=== PATIENT | male | born 1935 | race Caucasian/White ===

== ENCOUNTER 2019-10-17 14:58 | Inpatient (IN) | payer MEDICARE ==
[~2019-10-17] VITALS: Ht 188 cm; Wt 65.5 kg
--- NOTE | ~2019-10-17 | DS ---
PATIENT:MILAGRO STRONG :39 MEDICAL RECORD: [id number] DISCHARGE SUMMARY ADMISSION DATE: 10/17/19 DISCHARGE DATE: 10/23/19 DATE OF DISCHARGE: 10/23/2019 IDENTIFYING DATA: Mr. Strong is an 84-year-old male that was admitted to the hospital on a voluntary basis. CHIEF COMPLAINT: Altered mental status with behavioral disturbance. HISTORY OF PRESENT ILLNESS: The patient was transferred from inpatient. The patient was residing with spouse. He had been increasingly aggressive with his spouse. He had had a CVA. HOSPITAL COURSE: The patient was admitted to the hospital and evaluated from both a medical, psychological, and social standpoint. He was found to have advanced dementia, was treated with both mood stabilizing and memory enhancing medications. He did not show any improvement and was with a poor prognosis. Spouse was communicated with and it was decided that he would go to [facility] with hospice care. AXIS I: Vascular dementia with behavioral disturbances: AXIS II: None. AXIS III: Parkinson disease, anxiety, cerebrovascular accident, osteoarthritis. AXIS IV: Moderate stressors. AXIS V: Global assessment of function is 35. PLAN: At the time of discharge, the patient was in good behavioral control, was not eating nor sleeping well, however. He was placed in an environment where he could have 24-hour a day supervision and comfort care provided. Followup will be with his primary care physician. TRANSINT:[id number] Voice Confirmation ID: [id number] DOCUMENT ID: [id number] Dictated By: GAURAV CADENA I have interviewed/examined the above patient and agree with these documented findings. SENTHIL FARAH MD CC: [id number] DICTATION DATE: 10/25/19 1004 SUPERVISOR SCRAP PREPARATION: 10/26/19 0100 DIS IN 10/23/19 [facility] [address] [place] [address]
[2019-10-17] MEDS ORDERED: GLYCOPYRROLATE1 MG PO (16:29)
[2019-10-17] MEDS ORDERED: BAYER CHEWABLE81 MG PO (16:29)
[2019-10-17] MEDS ORDERED: CARBIDOPA LE S PO (16:31)
[2019-10-17] MEDS ORDERED: MUCINEX600 MG PO (16:33)
[2019-10-17] MEDS ORDERED: TYLENOL PM1 TAB PO (16:34)
[2019-10-17] MEDS ORDERED: AZILECT1 MG PO (16:34)
[2019-10-17] MEDS ORDERED: MOBIC7.5 MG PO (16:35)
[2019-10-17] MEDS ORDERED: XANAX0.5 MG PO (16:36)
[2019-10-17] MEDS ORDERED: VIAGRA50 MG PO (16:37)
[2019-10-17] MEDS ORDERED: EFUDEX 5 % CREA40 GM TOPICAL (16:40)
[2019-10-17] MEDS ORDERED: LIPITOR10 MG PO (16:40)
[2019-10-17] MEDS ORDERED: MULTI-DAY VITAM1 TAB PO (16:41)
[2019-10-17] MEDS ORDERED: OMEGA-3100 MG PO (16:42)
[2019-10-17] MEDS ORDERED: GLUCOSAMINE CHONDROI PO (16:45)
[2019-10-17] MEDS ORDERED: MIRALAX17 GM PO (16:46)
--- NOTE | 2019-10-17 17:15 | NUR ---
The patient is admitted to senior living from [facility], apparently he has had a stroke in the last month and he now has left sided weakness, he has a hx of Parkinson's, but he and his reside in their home until the stroke. The patient is unable to speak well. He is able to stand, but he is unsteady and has difficulty following simple commands. He is restless and he is trying to stand and walk and he does not understand why he is not able. 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 He has his teeth, no dentures, no heart or lung issues. 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 He is a DNR per his TANGELA Ramos. She has provided copies of his POA papers. He is currently in a lucia chair with a chair alarm on and he is a high falls risk.
[2019-10-17 17:24] VITALS: BP 138/75; BMI 17.2
--- NOTE | 2019-10-17 19:37 | NUR ---
PT IS RESTLESS AND AGGITATED WITH REDIRECTION. ADMINISTERED PRN HALDOL 2 MG IM AND ATIVAN 0.5 MG IM. WILL CONTINUE TO MONITOR.
[2019-10-17 20:00] VITALS: BP 128/61
--- NOTE | 2019-10-17 21:00 | NUR ---
B.) PT IS ALERT AND ORIENTED TO SELF ONLY. HE HAS POOR INSIGHT INTO HIS SITUATION. HE RECEIVED A PRN OF HALDOL AND ATIVAN AND IS RESTING CALMLY IN A GERICHAIR. NO SIGNS OF DISTRESS NOTED. I.) REDIRECT OFTEN. R.) EASIER TO REDIRECT. P.) WILL CONTINUE TO MONITOR.
[2019-10-17 23:53] LABS: BILIRUBIN NEGATIVE (NEGATIVE); GLUCOSE NEGATIVE (NEGATIVE); KETONE SMALL mg/dL (NEGATIVE); NITRITE NEGATIVE (NEGATIVE); RED CELLS - URINE 25-50 /hpf (0-5); UROBILINOGEN NORMAL (NORMAL)
[2019-10-18 06:34] LABS: CHOL - HDL RATIO 3.4 ratio (2.3-4.9); THYROID STIMULATING HORMONE 1.01 uIU/mL (0.36-3.74)
--- NOTE | 2019-10-18 07:53 | NUR ---
The patient is restless, he wants to stand up, he is used to be very independent. He is unable to comprehend that he has left sided weakness. Staff are trying to explian to him that he is not able to walk alone at this time, but he is getting anxious and he has tried to hit at the staff with his right arm. Ativan 0.5 mg IM provided, see MAR. When staff try to talk to him he has a difficult time looking at the person speaking. He has poor insight into his situation and he is not able to speak clearly at this time which adds to his frustration. Provide prescribed meds. Redirect as needed, approach in a calm manner. Continue POC.
--- NOTE | 2019-10-18 07:55 | NUR ---
RESTLESS,HITTING AT STAFF.WILL NOT REDIRECT.ATIVAN 0.5MG IM TO RT UPPER ARM GIVEN PER ORDERS.
--- NOTE | 2019-10-18 08:30 | NUR ---
The patient is sleeping and he was too sleepy for am meds at this time, will try again in a little while.
[2019-10-18 10:50] VITALS: BP 137/80
--- NOTE | 2019-10-18 18:10 | NUR ---
RESTLESS,NONCOMPLIANT WITH STAFF.WILL NOT REDIRECT,HITS AT STAFF.HAS REFUSED MEDS ALL DAY.ATIVAN 0.5MG IM TO RT DELTOID GIVEN.
--- NOTE | 2019-10-18 19:42 | PSY ---
PATIENT NAME:MILAGRO STRONG MEDICAL RECORD: [id number] : 39 LOCATION:[facility] Castaneda ADMISSION DATE: 10/17/19 ACCOUNT: [id number] PSYCHIATRIC EVALUATION DATE OF EVALUATION: 10/18/19 IDENTIFYING DATA: The patient is 84 years old and he is admitted to the hospital on a voluntary basis because of confusion and agitation. CHIEF COMPLAINT: None. HISTORY OF PRESENT ILLNESS: The patient had a stroke in September. He has a left hemiparesis. He also has a history of Parkinson disease. He was on the rehab unit at [facility], but was confused, agitated and disruptive there. They took him to the Emergency Room at their hospital and he was confused, agitated and disruptive there and they contacted us for admission. Upon arrival here, he was confused, agitated, disruptive and when I see him today. He is somewhat sedated, but that is because he has had received medication for the agitation and combativeness. He is only oriented to person. He is answering questions, but really is not making much sense. He is clearly very impaired. PAST MEDICAL HISTORY: Of course, most significant for the stroke, but prior to that, he has history of Parkinson's disease, but exactly how long is unclear. PAST PSYCHIATRIC HISTORY: Unknown. FAMILY HISTORY: Unknown. ALLERGIES: No known drug allergies. CURRENT MEDICATIONS: Include aspirin, Sinemet, Azilect, Mobic, Xanax, fluorouracil, Theragran, and MiraLax. SOCIAL HISTORY: The patient has no history of drug or alcohol use. He is and worked for [employer]. He has adult children who are involved with his care. MENTAL STATUS EXAMINATION: The patient is awake, alert and oriented to person only. His mood is flat. His affect is constricted. Thought processes are disorganized with severe impairment of his memory, concentration, and abstraction abilities. He has no thoughts of harming himself or others and no observable psychotic symptoms. ASSESSMENT: AXIS I: Advanced vascular neurocognitive disorder. AXIS II: None. AXIS III: Parkinson's disease, status post stroke. AXIS IV: Moderate stressors. AXIS V: Global assessment of functioning is 30. PLAN: At this time, the patient is admitted to the hospital for a comprehensive medical, psychological, and social evaluation. He will be treated with mood stabilizing and memory enhancing medications as deemed appropriate. His long-term prognosis is guarded. Treatment goals will be to reduce his level of agitation and to assist the family in finding the least restrictive environment that can meet his needs. TRANSINT:[id number] Voice Confirmation ID: [id number] DOCUMENT ID: [id number] SENTHIL FARAH MD at 1942 CC: [id number] DICTATION DATE: 10/18/19 1357 MIDDLE SCHOOL COACH: 10/18/19 1522 ADM IN [id number] [place] [address]
--- NOTE | 2019-10-18 19:45 | NUR ---
RECEIVED IN DAYROOM. SITTING IN A RECLINING CHAIR. RESTLESS. ATTEPMTS TO HIT STAFF DURING CARE. INCREASING ANXIETY. CONTINUE TO ATTEMPT TO REDIRECT AND REORIENT NEEDED. REMAINS RESTLESS IN HIS RECLINER. CONTINUE PLAN OF CARE.
--- NOTE | 2019-10-18 19:57 | NUR ---
RECEIVED IN DAYROOM. SITTING IN A CHAIR WITH PEERS AT HIS SIDE. CALM AND COOPERATIVE WITH CARE AND ASSESSMENT. NO SIGNS OF AGGRESSION. REDIRECT AND REORIENT NEEDED. CONTINUES TO SIT CALMLY IN DAYROO. CONTINUE PLAN OF CARE.
--- NOTE | 2019-10-18 20:16 | NUR ---
INCREASING ANXIETY. ATTEMPTS TO HIT STAFF. PRN ATIVAN 0.5 MG IM GIVEN FOR ANXIETY. CONTINUE TO MONITOR FOR SAFETY.
[2019-10-18 20:37] VITALS: BP 136/99
--- NOTE | 2019-10-18 20:45 | NUR ---
PT IS SITTING IN [facility]IC[facility]IR WITH EYES CLOSED. HE CONTINUES TO REMAIN RESTLESS AT TIMES WHILE EYES ARE CLOSED. WILL CONTINUE TO MONITOR.
--- NOTE | 2019-10-19 07:45 | NUR ---
REC'D IN HALLWAY IN RECLINING CHAIR WITH PEERS. AWAKE AND ALERT TO SELF ONLY. ASSESSMENT COMPLETED AT THIS TIME. PT IS RESTLESS AT THIS TIME. REDIRECT AND REORIENT NEEDED. PT'S REGINALD CALLED TO INFORM STAFF PT IS EX MARINE, THEY SLEEP IN DIFFERENT ROOMS AT NIGHT DUE TO PT HAS NIGHT COLMENARES AND WILL BE READY TO SWING IF NOT INFORMED WHO PERSON IS ATTEMPTING TO WAKE HIM. REPORTS " I TOUCH HIS FEET AND LET HIM KNOW ITS ME BEFORE I MOVE CLOSER." THIS NURSE INFORMED SW AND STAFF AND WILL PASS INFO TO . [facility].
[2019-10-19 09:21] VITALS: BP 150/73
[2019-10-19 10:41] VITALS: Ht 188 cm; Wt 65.5 kg
--- NOTE | 2019-10-19 16:07 | NUR ---
MANISHA SPOKE WITH PT'S , FELIX, TO DISCUSS HISTORY OF PT AND DISCHARGE PLANNING NEEDS. SHE STATED PT WILL BE GOING TO [facility] WHEN STABLE. PT'S WANTED HIS WEIGHT CHECKED AGAIN BECAUSE THE REHAB STATED HE WAS 154. MANISHA PASSED INFORMATION TO RN MOISES AND PT WILL BE WEIGHED AGAIN. SW DISCUSSED PT'S DIAGNOSIS AND TREATMENT PLAN. SW UPDATED ON PT'S BEHAVIORS AND ASSURED HER STAFF KNEW HOW TO HANDLE PT'S BEHAVIORS. MANISHA STATED PT WAS RESTLESS AND AGITATED EVEN WHEN STAFF ISN'T ENGAGING HIM. FELIX VERBALIZED UNDERSTANDING OF DISCUSSION.
[2019-10-19 20:05] VITALS: BP 132/56
--- NOTE | 2019-10-20 02:19 | NUR ---
B) Patient sedated and sleeping this shift, I) Held scheduled medication due to sedation, monitored for safety R) Medication held, calm and sleeping all shift, P) Continue plan of care.
--- NOTE | 2019-10-20 08:21 | PN ---
PATIENT:MILAGRO STRONG MEDICAL RECORD: [id number] LOCATION:DEST[facility]repo[facility]112 ADMISSION DATE: 10/17/19 PROGRESS NOTE DATE OF SERVICE: 10/19/2019 SUBJECTIVE: The patient's case was discussed with staff. He has no new complaint. OBJECTIVE: The patient is only oriented to person. He has been combative with staff. He is not eating adequately. He has received p.r.n. medication for agitation. ASSESSMENT: Vascular dementia. PLAN: Current medicines have been reviewed and will be maintained. I am going to attempt to reduce his Parkinson's medications. There is a possibility that the dopaminergic effects are causing some agitation. TRANSINT:[id number] Voice Confirmation ID: [id number] DOCUMENT ID: [id number] SENTHIL FARAH MD at 0821 CC: [id number] DICTATION DATE: 10/19/19 1616 TIN DIPPER: 10/19/19 2257 ADM IN [id number] [place] [address]
--- NOTE | 2019-10-20 09:24 | NUR ---
NURSE ADMINISTERED GEODON [address] FARAH ORDER. PT COMBATIVE WITH STAFF DURING REDIRECT, EXTREME ANXIOUS AND RESTLESS, AND EXTREMELY CONFUSED. CHAIR ALARM IN PLACE AND ACTIVE. WILL CONT TO ASSESS FOR EFFECTIVENESS.
[2019-10-20 09:53] VITALS: BP 110/50
--- NOTE | 2019-10-20 10:15 | NUR ---
NURSE SPOKE WITH PT TAE MONTELONGO. PASSCODE GIVEN. WANTED TO KNOW HOW HIS NIGHT WENT AND HOW HE WAS DOING TODAY. NURSE EXPLAIN THAT HE SLEPT 5.25 HOURS AND THAT HE DID NOT HAVE ANY BEHAVIORS. HE WAS MEDICATED FROM THE PREVIOUS SHIFT.AT THIS TIME HE WAS VERY RESTLESS, AGITATED, COMBATIVE AND DID NOT UNDERSTAND SIMPLE COMMANDS AND WAS CONFUSED. SHE STATED "WHAT THE END GOAL WAS HERE? IF HE IS ALWAYS SEDATED HOW DID WE HOPE TO ACCOMPLISH ANYTHING." NURSE EDUCATED THAT THE GOAL WAS TO FIND A MEDICATION REGIEME TO WHERE WE DID NOT HAVE TO CONTINUE TO REDIRECT HIS BEHAVIORS. THE GOAL WAS TO ASSIST HIM WITH BEING LESS COMBATIVE AND LESS REDIRECTION WITH BEHAVIORS. WANTED TO KNOW IF TWO VISITORS WAS STILL ALLOWED LOOKING AT THIS SHEET. NURSE STATED SHE WAS UNAWARE IF THE POLICY HAD CHANGED SHE WOULD GET CLARIFICATION AND GIVE HER A CALL BACK. SHE VERBALIZIED UNDERSTANDING.
--- NOTE | 2019-10-20 10:20 | NUR ---
NURSE CLARIFIED VISTIATION TIMES AND CALL Carmelita STRONG BACK WITH INFORMATION. NURSE EDUCATED ITS STILL ONE PERSON PER VISITATION EVERY 24 HOURS. NURSE EXPLAINED TO KEEP OUTSIDE BELONGINGS TO A MINIMAL TO REDUCE THE CHANCES OF COVID-19 COMING IN SUCH BRINGING KEYS INTO THE UNIT AND MINIMAL OTHER BELONGONGS SUCH A PURSE OR FOOD ITEMS. SHE STATED "OH I HAVE TO LEAVE MY PURSE IN THE CAR THAT DOES NOT SEEM VERY SAFE." NURSE EDUCATED THAT WE DO HAVE LOCKUP BOXES SHE CAN PUT HER PURSE IN. SHE VERBALIZIED UNDERSTANDING ABOUT POLICY. SHE STATED "IS IT STILL OKAY TO COME VISIT TODAY? IS THAT OKAY?" NURSE EXPLAINED THAT IT WAS VISITATION DAY SO THAT WAS OKAY."
--- NOTE | 2019-10-20 10:24 | NUR ---
PTS PRN EFFECTIVE AT THIS TIME. WILL CONT TO MONITOR.
--- NOTE | 2019-10-20 12:32 | NUR ---
PT SITTING IN CHAIR WITH EYES CLOSED. PT IS NOT EATING VERY WELL. PT IS CONFUSED, UNABLE TO REDIRECT, RESTLESS AND AGITATED. STAFF ATTEMPTS TO REDIRECT PTS COMBATIVE BEHAVIOR. UNABLE TO DO SO AT THIS TIME. PT IS COMPLIANT WITH CRUSHED MEDS. PT CAN NOT FOLLOW SIMPLE COMMANDS TO LOW COGNITIVE UNDERSTANDING. PT IS ALERT TO SELF ONLY. CONFUSION NOTED. STAFF ATTEMPTED TO ASSIST FEED PT. HE DID NOT COMPLY TO EAT. CHAIR ALARM IN PLACE AND ACTIVE. PT CAN NOT AMBUALTE WITHOUT MAX ASSISTANCE. PT HAS LEFT SIDE WEAKNESS RELATED TO A CVA IN THE PAST MONTH. PT DOES HAVE GENERAL SKIN TEARS AND BRUSING NOTED TO BILATERAL ARMS. LUNG SOUNDS CLEAR X4 QUADS. PT TO START LEVOFLOXACIN 500 MG DAILY. WILL CONT PLAN OF CARE.
--- NOTE | 2019-10-20 18:24 | NUR ---
PT COMBATIVE, RESTLESS, AND NOT FOLLOWING INSTRUCTIONS. GEODON 10 MG IM GIVEN PER DR. FARAH ORDER. PT IS ALERT TO SELF ONLY. CONFUSED AND EXTREMELY COMBATIVE. PT DOES NOT UNDERSTAND SIMPLE COMMANDS. CHAIR ALARM IN PLACE AND ACTIVE. WILL CONT PLAN OF CARE.
--- NOTE | 2019-10-20 18:56 | NUR ---
LEVAQUIN 500 MG ANTIBIOTIC INTIAL DOSE GIVEN PO THIS SHIFT.
--- NOTE | 2019-10-20 18:59 | NUR ---
PT WEIGHT PER SCALE 144 LBS
[2019-10-20 19:45] LABS: BASOPHILS 0.3 % (0-2); EOSINOPHILS 0.8 % (0-7); HEMATOCRIT 39.9 % (42.0-54.0); HEMOGLOBIN 13.2 g/dL (13.5-17.5); IMMATURE GRANULOCYTES 0.1 % (0-5); LYMPHOCYTES 9.5 % (15-50); MCH 31.3 pg (26.0-34.0); MCHC 33.1 g/dL (31.0-37.0); MCV 94.5 fL (80.0-100.0); MEAN PLATELET VOLUME 9.1 fL (7.4-10.4); MONOCYTES 11.5 % (2-11); NEUTROPHILS 77.8 % (40-80); PLATELET COUNT 264 10x3/uL (130-400); RBC 4.22 10x6/uL (4.20-6.10); RDW 13.6 % (11.5-14.5); WBC 8.9 10x3/uL (4.8-10.8)
[2019-10-20 20:17] LABS: ANION GAP 14.9 mmol/L (8-16); CALCIUM 9.7 mg/dL (8.5-10.1); CARBON DIOXIDE 25.2 mmol/L (21.0-32.0); CREATININE - SERUM 1.4 mg/dL (0.6-1.3); POTASSIUM - SERUM 4.1 mmol/L (3.5-5.1)
[2019-10-20 20:28] VITALS: BP 100/60
--- NOTE | 2019-10-20 22:29 | NUR ---
B) Patient is sedated and restless, constant motion, one on one for safety I) Administered scheduled medications crushed , monitored closely to prevent falls. R) medication compliant, at nurses station in lucia chair, P) continue plan of care.
--- NOTE | 2019-10-21 07:45 | NUR ---
REC'D PT IN RECLINING CHAIR IN [facility] BY NURSES STATION. PT IS VERY RESTLESS AND ATTEMPTS TO CLIMB OUT OF CHAIR. STAFF PRESENT WITH PT FOR SAFETY. ASSESSMENT COMPLETED. PRESCRIBED MEDS PROVIDED ORDERED. MED COMPLIANT WITH MEDS CRUSHED IN APPLESAUCE. PT CAN BECOME VERY AGGRESSIVE WITH STAFF AT TIMES. PT IS HARD TO REDIRECT AT TIMES. REDIRECT AND REORIENT NEEDED. PT STILL REFUSING TO EAT AND THROWING FOOD AT STAFF AND OTHERS PTS THIS MORNING. STAFF OFFERED ENSURE, PT REFUSED X 3. FALL PRECAUTIONS IN PLACE. WILL CPOC.
[2019-10-21 09:16] VITALS: BP 118/66
--- NOTE | 2019-10-21 11:19 | NUR ---
Nutrition Follow-up: Diet: Regular + Ensure TID PO intake: 0% Last BM: none since admit. WT: 144# (10/20/19); Admit Wt: 134# (10/17/19) Meds noted: miralax. Labs noted: BUN 34(H), Cr 1.4(H). Glu 109(H) Recommend continue current diet, being fed by staff, encourage PO intake. Will continue oral nutrition supplements. MD may consider adding appetite stimulant as medically feasible. MD may consider PEG tube placement for nutrition support if PO intake remains poor. RD following.
--- NOTE | 2019-10-21 15:58 | PN ---
PATIENT:MILAGRO STRONG MEDICAL RECORD: [id number] LOCATION:[facility]repo[facility]112 ADMISSION DATE: 10/17/19 PROGRESS NOTE DATE OF SERVICE: 10/20/2019 SUBJECTIVE: The patient's case was discussed with staff. He has no new complaint. OBJECTIVE: The patient is sedated. I can arouse him, but with some difficulty. He was very agitated earlier today and that was the reason for the p.r.n. medication. ASSESSMENT: Vascular dementia. PLAN: The patient's condition appears to be quite advanced. I did reduce his Sinemet dosage yesterday and we will observe any effects of that reduction today and tomorrow. The treatment team is going to meet with his this afternoon to discuss the situation. From the telephone conversation, it appears that she fails to comprehend the gravity of his situation. TRANSINT:[id number] Voice Confirmation ID: [id number] DOCUMENT ID: [id number] SENTHIL FARAH MD at 1558 CC: [id number] DICTATION DATE: 10/20/19 1530 PIPE ROLLER: 10/21/19 0006 ADM IN [facility] [address] [id number]
[2019-10-21 20:01] VITALS: BP 133/59
--- NOTE | 2019-10-21 23:41 | NUR ---
B) Patient is alert and oriented to self, aggressive nad combative with staff and other patients, I) Administered scheduled medications as ordered, PRN Xanax 0.5 mg PO given for anxiety at 20:03, redirected as needed, R) Mediation compliant, aggressive and will not redirect, P) Continue plan of care.
--- NOTE | 2019-10-22 08:18 | NUR ---
The patient is awake, he has not idea where he is, he knows his name. he does not know the date or the year. He is restless and he is trying to get up and walk, although, he has left sided weakness, he does not comprehend that he is unable to stand and walk alone. He has poor insight into his situation. He has been independent in his life and he is having difficulty with direction from staff. He tries to kick at staff when they assist him from standing. Provide prescribed meds. Continue POC.
[2019-10-22 09:25] VITALS: BP 122/65
--- NOTE | 2019-10-22 12:01 | PN ---
PATIENT:MILAGRO STRONG MEDICAL RECORD: [id number] LOCATION:[facility] ADMISSION DATE: 10/17/19 PROGRESS NOTE DATE OF SERVICE: 10/21/2019 SUBJECTIVE: The patient's case was discussed with staff. He has no new complaint. OBJECTIVE: The patient has limited insight about his situation. He is generally tolerating his medications well. He has not been aggressive. He is not eating adequately. ASSESSMENT: Vascular dementia. PLAN: The patient is going to be started on Megace to assist with appetite stimulation. He will be monitored for clinical changes. TRANSINT:[id number] Voice Confirmation ID: [id number] DOCUMENT ID: [id number] SENTHIL FARAH MD at 1201 CC: [id number] DICTATION DATE: 10/21/19 1604 BULB GRADER: 10/22/19 0249 ADM IN [id number] [place] [address]
[2019-10-22 18:34] LABS: ANION GAP 13.6 mmol/L (8-16); CALCIUM 9.1 mg/dL (8.5-10.1); CARBON DIOXIDE 27.7 mmol/L (21.0-32.0); CREATININE - SERUM 1.5 mg/dL (0.6-1.3); POTASSIUM - SERUM 4.3 mmol/L (3.5-5.1)
[2019-10-22 18:49] LABS: BASOPHILS 0.3 % (0-2); EOSINOPHILS 0.5 % (0-7); HEMOGLOBIN 13.4 g/dL (13.5-17.5); IMMATURE GRANULOCYTES 0.3 % (0-5); LYMPHOCYTES 9.5 % (15-50); MCH 31.2 pg (26.0-34.0); MCHC 32.7 g/dL (31.0-37.0); MCV 95.6 fL (80.0-100.0); MEAN PLATELET VOLUME 9.3 fL (7.4-10.4); NEUTROPHILS 77.4 % (40-80); PLATELET COUNT 285 10x3/uL (130-400); RBC 4.29 10x6/uL (4.20-6.10); RDW 13.7 % (11.5-14.5); WBC 10.9 10x3/uL (4.8-10.8)
[2019-10-22 21:22] VITALS: BP 113/70
--- NOTE | 2019-10-22 22:06 | NUR ---
B) Patient is alert and oriented only to person, combative with staff at times, I) Administered scheduled medications crushed, redirected as needed, monitored for safety R) medfiation compliant. sleeping now quietly in his bed P) Continue plan of care.
--- NOTE | 2019-10-23 06:36 | NUR ---
SPOKE WITH REGINALD PT . SHE INQUIRED ABOUT BEHAVIORS LAST NIGHT. I INFORMED HER THAT HE WAS ONLY AGGRESSIVE WITH CARE AT TIMES, HE SLEPT VERY WELL. SHE REQUESTED THAT MABEL GIVE HER A CALL AT [phone].
--- NOTE | 2019-10-23 07:31 | NUR ---
The patient is awake and alert, he is listening to staff this am. Staff explaining in clear concise direction and he is being calm and pleasant. He is walking with staff assist. Provide prescribed meds. Redirect as needed. Monitor his mood. He has not shown aggression this am. He has no insight as to where he is or the date. Continue POC.
[2019-10-23 09:07] VITALS: BP 128/73
--- NOTE | 2019-10-23 10:57 | NUR ---
Shahriar Fernando Animal Husbandry Worker called and said she spoke to the patient's spouse and she would like the patient put on [facility] and d/c'd to [facility] today. Spoke to Bennie Horton of [facility] and he is agreeable to take the patient today.
--- NOTE | 2019-10-23 13:20 | PN ---
PATIENT:MILAGRO STRONG MEDICAL RECORD: [id number] LOCATION:[facility] Restrepo[facility]ody[facility] ADMISSION DATE: 10/17/19 PROGRESS NOTE DATE OF SERVICE: 10/22/2019 SUBJECTIVE: The patient's case was discussed with staff. He has no new complaint. OBJECTIVE: The patient is not eating well. He is extremely confused and impaired cognitively. He denies any homicidal or suicidal thoughts. ASSESSMENT: Vascular dementia. PLAN: The patient is not eating or drinking adequately. This is problematic in the long-term. I am going to check baseline labs. He is receiving Megace to stimulate his appetite. His prognosis is not good as he is not responding very well so far. TRANSINT:[id number] Voice Confirmation ID: [id number] DOCUMENT ID: [id number] SENTHIL FARAH MD at 1320 CC: [id number] DICTATION DATE: 10/22/19 1608 INSURANCE AGENCY OWNER: 10/22/19 2335 ADM IN [id number] [place] [address]
--- NOTE | 2019-10-23 13:48 | NUR ---
NURSE SPOKE WITH HOSSEIN WITH [facility]. HOSSEIN STATED THAT ONCE THE EQUIPMENT ARRIVED AT THE [facility] THEN SHE WOULD LET US KNOW. THE WANTED TO PICK THE PT UP TO TAKE TO [facility]. NURSE STATED SHE WOULD LET HER KNOW WHEN TO COME PICK HIM UP FOR DISCHARGE. SHE VERBALIZIED UNDERSTANDING.
[2019-10-23] MEDS ORDERED: DONEPEZIL HCL5 MG PO (15:22)
--- NOTE | 2019-10-23 16:00 | NUR ---
Called the patient's spouse to see if she wanted the medications called to the pharmacy or if Hospice was going to handle the medications. The spouse said Hospice was handling it. Faxed the d/c order, health summary, and medication list to [facility], have a hard copy of the medication list, and a pharmacy monograph for the patient's spouse. The patient is packed and he is shaved and ready to d/c to the [facility].
--- NOTE | 2019-10-23 16:07 | NUR ---
Called Bennie Horton at the [facility] and let him know that Mrs. Luevano will be picking the patient up and taking him to the [facility]. Melody MarquezSol said "Yes, Mrs. Luevano, just text him a few minutes ago." All is ready at this time.
--- NOTE | 2019-10-23 16:34 | NUR ---
The patient's spouse is here and handed the patient's spouse his belongings and the paperwork. Two staff and spouse assisting the patient in the car. The patient is now d/c'd off of the unit.
--- NOTE | 2019-10-23 17:26 | NUR ---
[facility] called and asked if we would please call the medications into [facility] [address]. Called the pharmacy and provided the med list.
== END 2019-10-23 17:28 | disposition home health service (06) | DRG 884 ==
LOC: D.PSYCH 14:58
PROVIDERS: ADMIT Psychiatry & Neurology Psychiatry; ATTEND Psychiatry & Neurology Psychiatry
DX: F01.51 Vascular dementia, unspecified severity, with behavioral disturbance (principal); N39.0 Urinary tract infection, site not specified; I69.319 Unspecified symptoms and signs involving cognitive functions following cerebral infarction; G20 Parkinson's disease; F41.9 Anxiety disorder, unspecified; R26.9 Unspecified abnormalities of gait and mobility; K59.00 Constipation, unspecified